=== PATIENT | female | born 1985 | race African-American/Black ===

== ENCOUNTER 2024-03-19 09:49 | Outpatient (REF) | payer MEDICAID, SELFPAY ==
[2024-03-19 11:54] LABS: MANUAL DIFF FLAG NO
[2024-03-19 12:05] LABS: Basophils Absolute Auto 0.1 X10*3/uL (0.0-0.2); Basophils Percent Auto 0.6 % (0-2); Eosinophils Absolute Auto 0.2 X10*3/uL (0.0-0.4); Hematocrit 39.3 % (37.0-47.0); Hemoglobin 12.8 g/dl (12.0-16.0); Imm Gran Abs Auto 0.03 X10*3/uL (0.00-0.03); Imm Gran Pct Auto 0.3 % (0.0-0.4); Lymphocytes Absolute Auto 2.8 X10*3/uL (1.2-4.9); Lymphocytes Percent Auto 31.1 % (20-40); Mean Corpuscular HGB Conc 32.6 g/dl (31.0-35.0); Mean Corpuscular Hemoglobin 26.9 pg (27.0-33.0); Mean Corpuscular Volume 82.6 fL (80.0-98.0); Mean Platelet Volume 9.7 fL (9.4-12.3); Monocytes Absolute Auto 0.6 X10*3/uL (0.1-1.2); Monocytes Percent Auto 6.5 % (2-11); Neutrophils Absolute Auto 5.3 x10*3/uL (2.0-8.3); Neutrophils Percent Auto 59.5 % (45-73); Platelet Count 344 X10*3/uL (160-400); Red Blood Count 4.76 X10*6/uL (4.20-5.50); Red Cell Distribution Width 13.3 % (11.0-16.0); White Blood Count 8.9 X10*3/uL (4.8-10.8)
[2024-03-19 12:14] LABS: Estimated Average Glucose 206 mg/dL; Hemoglobin A1c % 8.8 % (<6.0)
[2024-03-19 12:34] LABS: Alanine Aminotransferase 14 U/L (0-31); Albumin Level 4.2 g/dL (3.5-5.0); Alkaline Phosphatase 91 U/L (39-117); Anion Gap 11 (12-20); Aspartate Amino Transferase 16 U/L (5-31); Bilirubin Total 0.4 mg/dL (0.0-1.0); Blood Urea Nitrogen 6 mg/dL (9-16); Calcium 9.5 mg/dL (8.4-10.2); Carbon Dioxide 27 mmol/L (22-29); Chloride 103 mmol/L (96-108); Cholesterol 189 mg/dL (<200); Estimated Glomerular Filt Rate > 60; Glucose Random 165 mg/dL (60-115); HDL Cholesterol 53 mg/dL (>40); LDL Cholesterol Calculated 113 mg/dL (<100); Potassium 3.8 mmol/L (3.3-5.1); Sodium 137 mmol/L (135-145); Total Protein 7.9 g/dL (6.5-8.0); Triglycerides 118 mg/dL (<150)
== END 2024-03-19 09:50 | disposition home or self-care (01) ==
LOC: HO.HHCL 09:49
PROVIDERS: Visit Provider General Practice
DX: E11.9 Type 2 diabetes mellitus without complications (principal)
CPT/HCPCS: 36415; 80053; 80061; 83036; 84443; 85025

== ENCOUNTER 2024-10-04 17:48 | Emergency (ER) | payer MEDICAID, SELFPAY ==
--- NOTE | 2024-10-04 | ECG_ITS ---
Test Reason : PALPITATIONS Blood Pressure : */* mmHG Vent. Rate : 90 BPM Atrial Rate : 90 BPM P-R Int : 154 ms QRS Dur : 88 ms QT Int : 374 ms P-R-T Axes : 36 4 12 degrees QTcB Int : 457 ms Normal sinus rhythm Minimal voltage criteria for LVH, may be normal variant ( R in aVL ) Borderline ECG No previous ECGs available Referred By: Generic ED Physician Electronically Signed By: RADHA HUGGINS
--- NOTE | ~2024-10-04 | XR_ITS ---
CLINICAL HISTORY: CP 2 view chest x-ray. Comparison: None Findings: The lungs are adequately expanded. No focal consolidation. No effusion or pneumothorax. Cardiac and mediastinal contours are within normal limits. No acute osseous abnormality Impression: No acute process. This document has been electronically signed by: Darwin Sommer MD on 10/04/2024 19:22:59
--- NOTE | 2024-10-04 17:57 | PC.NURSE ---
reviewed EKG and okay'd for waiting room
[2024-10-04 18:12] VITALS: BP 142/87; PULSE 92; RESP 16; TEMP 36.6; O2SAT 100; BMI 33.4
--- NOTE | 2024-10-04 18:13 | ED.CHESTPAIN ---
HPI - Chest Pain General Chief Complaint: Chest Pain Stated Complaint: sudden onset palpitations, 12 lead unremarkable Time Seen by Provider: 10/04/24 22:00 Source: patient Mode of arrival: ambulatory Limitations: language barrier History of Present Illness ED Provider: HPI narrative: patient from [facility] patient no significant past medical history sharp left-sided chest pain under the breastlasted only for few minutes history of same pain in the past no shortness a breath no cough cardiac history in the past patient does have history of diabetes and hyperlipidemia Related Data Allergies Allergy/AdvReac Type Severity Reaction Status Date / Time No Known Allergies Allergy Verified 10/04/24 18:13 Review of Systems Review of Systems: Yes all other systems are reviewed and are negative [facility] Social History Social History Smoked in Last 30 Days: No Use of substances other than those prescribed or required for medical reasons: No Advance Directives: No Advance Directives Information Provided: Yes Physical Exam Vital Signs: Vital Signs: Last Vital Signs Temp 98.2 F 10/04/24 22:23 Pulse 89 10/04/24 22:23 Resp 20 10/04/24 22:23 BP 118/72 10/04/24 22:23 Pulse Ox 98 10/04/24 22:23 O2 Del Method Room Air 10/04/24 22:23 BMI result Body Mass Index 33.4 Appearance: Alert. Oriented X3. No acute distress. Eyes: PERRLA, No Nystagmus ENT: Pharynx normal. Oral Mucosa moist Neck: Normal inspection. Neck supple. CVS: Normal heart rate and rhythm. Pulses normal. Respiratory: No respiratory distress. Equal air entry bilateral, no wheezing/rales/rhonchi Abdomen: Soft and nontender. Bowel sounds are present, no mass palpable, no CVA tenderness Skin: Skin warm and dry. Normal skin color. Normal skin turgor. Extremities: No lower extremity edema. No calf tenderness Neuro: Oriented X 3. No motor deficit. No sensory deficit.No cerebellar signs , cranial nerves II-XII intact Course Course Course Narrative: This is an RME: Additional HPI, ROS, PE not included below will be deferred to primary provider. RME assessment and note performed by: Gricel Og PA-C This is a 89-[id number] creole speaking female, with a hx of diabetes on metformin, who presents to the ER with complaints of left sided chest cramping since today. pain started after eating. describing pain as a squeezing pain. Pt states that she has had this pain before. Reports pain in her chest resolved after ambulance. She was given 4 ASA en route. Plan: Labs, EKG, CXR Medical Decision Making Medical Decision Making [facility] Narrative: patient has atypical sharp left-sided chest pain lasted only for few seconds with normal EKG normal cardiac enzymes done twice, skeletal pain advised to take Tylenol/ibuprofen for pain as needed Differential Diagnosis Differential Diagnoses: The differential diagnosis associated with the presentation includes Lab Data [facility] Lab Attestation statement: I reviewed the patient's lab results. 10/04/24 18:43 10/04/24 18:43 Labs: Lab Results 10/04/24 10/04/24 Range/Units 18:43 21:02 WBC 10.9 H (4.8-10.8) X10*3/uL RBC 4.79 (4.20-5.50) X10*6/uL Hgb 12.9 (12.0-16.0) g/dl Hct 38.4 (37.0-47.0) % MCV 80.2 (80.0-98.0) fL MCH 26.9 L (27.0-33.0) pg MCHC 33.6 (31.0-35.0) g/dl RDW 13.5 (11.0-16.0) % Plt Count 340 (160-400) X10*3/uL MPV 9.1 L (9.4-12.3) fL Immature Gran % (Auto) 0.3 (0.0-0.4) % Neut % (Auto) 58.5 (45-73) % Lymph % (Auto) 33.3 (20-40) % Ceiba % (Auto) 6.6 (2-11) % Eos % (Auto) 0.9 (0-4) % Baso % (Auto) 0.4 (0-2) % Lymph # (Auto) 3.6 (1.2-4.9) X10*3/uL Ceiba # (Auto) 0.7 (0.1-1.2) X10*3/uL Eos # (Auto) 0.1 (0.0-0.4) X10*3/uL Baso # (Auto) 0.0 (0.0-0.2) X10*3/uL Abs Immat Gran (auto) 0.03 (0.00-0.03) X10*3/uL Absolute Neuts (auto) 6.4 (2.0-8.3) x10*3/uL Absolute Nucleated RBC 0.000 (0.0-0.012) X10*3/uL Nucleated RBC % (auto) 0.0 (0.0-0.2) /100WBC Sodium 139 (135-145) mmol/L Potassium 4.0 (3.3-5.1) mmol/L Chloride 104 (96-108) mmol/L Carbon Dioxide 27 (22-29) mmol/L Anion Gap 12 (12-20) BUN 9 (9-16) mg/dL Creatinine 0.69 (0.5-1.4) mg/dL Estim Creat Clear Calc 130.1 Estimated GFR > 60 Random Glucose 185 H (60-115) mg/dL Calcium 10.4 H D (8.4-10.2) mg/dL Magnesium 1.8 (1.6-2.6) mg/dL Total Bilirubin 0.3 (0.0-1.0) mg/dL Direct Bilirubin 0.1 (0.0-0.5) mg/dL AST 12 (5-31) U/L ALT 17 (0-31) U/L Alkaline Phosphatase 96 (39-117) U/L Troponin I High Sens < 2.7 < 2.7 (<3.5-17.0) ng/L Total Protein 8.2 H (6.5-8.0) g/dL Albumin 4.2 (3.5-5.0) g/dL Lipase 27 (8-78) U/L TSH 1.83 (0.32-4.0) uIU/mL Beta HCG, Quant < 2 mIU/mL Influenza Type A (PCR) NEGATIVE (Negative) Influenza Type B (PCR) NEGATIVE (Negative) RSV RNA Qual (PCR) NEGATIVE (Negative) SARS-CoV-2 RNA (RT-PCR) NEGATIVE (Negative) Independent Interpretation I performed an independent interpretation of an: EKG Interpretation: normal sinus rhythm heart rate 90 beats per minute normal intervals LVH no acute STT wave changes no acute ischemia Discharge Plan Discharge Clinical Impression: Atypical chest pain Patient Disposition: Home, Self-Care Additional Instructions: your chest pain is unlikely from the heart likely musculoskeletal your blood workup is normal follow up with your primary care doctor Tylenol/Motrin for the pain Interventions: ED Discharge Assessment Last Done: 10/04/24 22:23 Discharge Date/Time: 10/04/24 22:24 Print Language: Gibraltarian
[2024-10-04 18:49] LABS: MANUAL DIFF FLAG NO
[2024-10-04 18:50] LABS: Basophils Percent Auto 0.4 % (0-2); Eosinophils Absolute Auto 0.1 X10*3/uL (0.0-0.4); Eosinophils Percent Auto 0.9 % (0-4); Hematocrit 38.4 % (37.0-47.0); Hemoglobin 12.9 g/dl (12.0-16.0); Imm Gran Abs Auto 0.03 X10*3/uL (0.00-0.03); Imm Gran Pct Auto 0.3 % (0.0-0.4); Lymphocytes Absolute Auto 3.6 X10*3/uL (1.2-4.9); Lymphocytes Percent Auto 33.3 % (20-40); Mean Corpuscular HGB Conc 33.6 g/dl (31.0-35.0); Mean Corpuscular Hemoglobin 26.9 pg (27.0-33.0); Mean Corpuscular Volume 80.2 fL (80.0-98.0); Mean Platelet Volume 9.1 fL (9.4-12.3); Monocytes Absolute Auto 0.7 X10*3/uL (0.1-1.2); Monocytes Percent Auto 6.6 % (2-11); Neutrophils Absolute Auto 6.4 x10*3/uL (2.0-8.3); Neutrophils Percent Auto 58.5 % (45-73); Platelet Count 340 X10*3/uL (160-400); Red Blood Count 4.79 X10*6/uL (4.20-5.50); Red Cell Distribution Width 13.5 % (11.0-16.0); White Blood Count 10.9 X10*3/uL (4.8-10.8)
[2024-10-04 19:14] LABS: Alanine Aminotransferase 17 U/L (0-31); Albumin Level 4.2 g/dL (3.5-5.0); Alkaline Phosphatase 96 U/L (39-117); Anion Gap 12 (12-20); Aspartate Amino Transferase 12 U/L (5-31); Bilirubin Direct 0.1 mg/dL (0.0-0.5); Bilirubin Total 0.3 mg/dL (0.0-1.0); Blood Urea Nitrogen 9 mg/dL (9-16); Calcium 10.4 mg/dL (8.4-10.2); Carbon Dioxide 27 mmol/L (22-29); Chloride 104 mmol/L (96-108); Creatinine Clr Calc Pharmacy 130.1; Estimated Glomerular Filt Rate > 60; Glucose Random 185 mg/dL (60-115); Lipase 27 U/L (8-78); Magnesium 1.8 mg/dL (1.6-2.6); Sodium 139 mmol/L (135-145); Total Protein 8.2 g/dL (6.5-8.0)
[2024-10-04 19:19] LABS: Troponin-I High Sensitivity < 2.7 ng/L (<3.5-17.0)
[2024-10-04 19:29] LABS: HCG Quantitative < 2 mIU/mL; TSH reflex Free T4 1.83 uIU/mL (0.32-4.0)
[2024-10-04 19:30] LABS: Influenza A PCR NEGATIVE (Negative); Influenza B PCR NEGATIVE (Negative); Resp Syncy Virus RNA Qual PCR NEGATIVE (Negative); SARS COV2 PCR INHOUSE NEGATIVE (Negative)
[2024-10-04 20:54] VITALS: BP 114/76; PULSE 90; RESP 14; TEMP 36.8; O2SAT 97
--- OUTSIDE RECORDS SUMMARY | 2024-10-04 21:25 | XMS_ITS | Clinical Summary ---
Author Organization [employer] Address [address] [facility] [address] [place] [address] Care Team Providers Care Surgical Clinical Reviewer Name Role Phone Jeanette Burrell NP Primary Care Provider [phone] Allergies No known active allergies Medications Blood Pressure kitIndications:El evated blood pressure reading in office without diagnosis of hypertension 1 each 2 times daily. 1 kit 07/11/2024 07/11/20 25 Active metFORMIN XR (Glucophage-XR) 750 MG 24 hr tabletIndications :Type 2 diabetes mellitus without complication, without long-term current use of insulin (CMS/HCC) Take 1 tablet (750 mg) by mouth 2 times daily. Do not crush, chew, or split. 180 tablet 3 07/11/2024 07/11/20 25 Active simvastatin (Zocor) 20 MG tabletIndications :Type 2 diabetes mellitus without complication, without long-term current use of insulin (CMS/HCC) Take 1 tablet (20 mg) by mouth in the evening. 30 tablet 11 07/11/2024 07/11/20 25 Active Active Problems Problem Noted Date Diagnosed Date Type 2 diabetes mellitus wit hout complication, without long-term current use of insulin 03/19/2024 Assessment & Plan (03/19/2024 10:49 AM EDT): Reports diagnosis previously, taking Metformin 750mg BID Restarted medication Labs ordered to prepare for PCP visit Other hyperlipidemia 03/19/2024 Assessment & Plan (03/19/2024 10:48 AM EDT): Reports taking Simvastatin, unsure of dosage Elevated blood pressure read ing in office without diagnosis of hypertension 03/19/2024 Assessment & Plan (03/19/2024 10:50 AM EDT): Continue to monitor in clinic, would start ACEi/ARB if needed based on BP for renal protection Encounters Date Type Department Care Team Description 08/14/2024 Telephone [facility] [address] [place] [phone] Jeanette Burrell NP 07/12/2024 Telephone [facility] [address] [place] [phone] Cheryl Hernandez RN Follow-up 07/11/2024 9:20 AM EST Office Visit [facility] [address] [place] [phone] Jeanette Burrell NP Acute intractable headache, unspecified headache type (Primary Dx); Elevated blood pressure reading in office without diagnosis of hypertension; Type 2 diabetes mellitus without complication, without long-term current use of insulin ([facility]) from Last 3 Months Social History Tobacco Use Types Packs/Day Years Used Date Smoking Tobacco: Never Smokeless Tobacco: Never Tobacco Cessation:Counseling Given: Not Answered Comments Unknown Sex and Gender Information Value Date Recorded Sex Assigned at Female 03/19/2024 8:35 AM EDT Legal Sex Female 3:56 PM EDT Gender Identity Female 03/19/2024 8:35 AM EDT Sexual Orientation Straight 03/19/2024 8: 35 AM EDT Last Filed Vital Signs Vital Sign Reading Time Taken Comments Blood Pressure 118/80 07/11/2024 10:25 AM EST Pulse 90 07/11/2024 9:40 AM EST Temperature 36.7 ??C (98.1 ??F) 07/11/2024 9:40 AM ES T Respiratory Rate 16 07/11/2024 9:40 AM EST Oxygen Saturation 99% 03/19/2024 8:53 AM EDT Inhaled Oxygen Concentration - - Weight 99.3 kg (219 lb) 07/11/2024 9:40 AM EST Height - - Body Mass Index - - Plan of Treatment Upcoming Encounters Date Type Department Care Team (Late st Contact Info) Description 11/09/2024 10:00 AM EDT Office Visit [facility] [address] [place] [phone] Jeanette Burrell NP [address] [place] [phone] Health Maintenance Due Date Last Done Comments Depression Screening 1987 HIV Screening 1987 SDOH Screening 1987 Alcohol/Substance Use Screening 1999 Family Planning (PISQ) 12/26/2002 Hepatitis C Screening 12/26/2005 DTaP/Tdap/Td Vaccines (1 - Tdap) 12/26/2006 Hepatitis B Vaccines (1 of 3 - 19+ 3-dose series) 12/26/2006 Pap Smear 12/26/2008 Cervical Cancer Screening 12/26/2017 HPV/Cotest 12/26/2017 COVID-19 Vaccine (1 - 2023-2 5 season) 2024 Influenza Vaccine (#1) 2024 Tobacco Screening 03/19/2025 03/19/2024 Zoster Vaccines (1 of 2) 12/26/2037 RSV Patients and Pa tients Aged 60 years or older (1 - 1-dose 75+ series) 12/26/2062 HIB Vaccines Aged Out No longer eligi ble based on patient's age to complete this topic HPV Vaccines Aged Out No longer eligi ble based on patient's age to complete this topic Hepatitis A Vaccines Aged Out No long er eligible based on patient's age to complete this topic IPV Vaccines Aged Out No longer eligi ble based on patient's age to complete this topic Meningococcal Vaccine Aged Out No jamarcus jo eligible based on patient's age to complete this topic Pneumococcal Vaccine: Pediat rics (0 to 5 Years) and At-Risk Patients (6 to 49) Years) Aged Out No longer elig ible based on patient's age to complete this topic RSV under 20 months Aged Out No longe r eligible based on patient's age to complete this topic Rotavirus Vaccines Aged Out No longer eligible based on patient's age to complete this topic Insurance [facility] Care Teams Surgical Clinical Reviewer Relationship Specialty Start Date End Date Jeanette Burrell NP [address] [place] [phone] PCP - General Family Medicine 07/11/24
[2024-10-04 21:27] LABS: Troponin-I High Sensitivity < 2.7 ng/L (<3.5-17.0)
[2024-10-04 21:59] VITALS: BP 118/72; PULSE 89; RESP 20; TEMP 36.8; O2SAT 98
[2024-10-04 22:23] VITALS: BP 118/72; PULSE 89; RESP 20; TEMP 36.8; O2SAT 98
== END 2024-10-04 22:24 | disposition home or self-care (01) ==
PROVIDERS: Physician Assistant Medical; Emergency Provider Internal Medicine
DX: R07.89 Other chest pain (principal); R00.2 Palpitations; Z03.818 Encounter for observation for suspected exposure to other biological agents ruled out; Z79.899 Other long term (current) drug therapy
CPT/HCPCS: 0241U; 36415; 71046; 80048; 80076; 83690; 83735; 84443; 84484; 84702; 85025; 93005; 99283; 99284

== ENCOUNTER → 2024-10-04 17:52 | Outpatient (BNV) | payer MEDICAID, SELFPAY | PROVIDERS: Emergency Provider Internal Medicine; Visit Provider Internal Medicine | DX: R00.2 Palpitations (principal) | CPT/HCPCS: 93010 ==

== ENCOUNTER → 2024-10-04 18:15 | Outpatient (BNV) | payer MEDICAID, SELFPAY | PROVIDERS: Visit Provider Radiology Vascular & Interventional Radiology | DX: R07.9 Chest pain, unspecified (principal) | CPT/HCPCS: 71046 ==

== ENCOUNTER 2024-11-17 14:17 | Outpatient (REF) | payer MEDICAID, SELFPAY ==
--- OUTSIDE RECORDS SUMMARY | 2024-11-17 14:19 | XMS_ITS | Clinical Summary ---
Author Organization [employer] Address [address] [facility] 7[address] [place] [address] Care Team Providers Care Terminal Computer Operator Name Role Phone Jeanette Burrell NP Primary Care Provider [phone] Allergies No known active allergies Medications Blood Pressure kitIndications:El evated blood pressure reading in office without diagnosis of hypertension 1 each 2 times daily. 1 kit 4 07/11/20 25 Active metFORMIN XR (Glucophage-XR) 750 MG 24 hr tabletIndications :Type 2 diabetes mellitus without complication, without long-term current use of insulin (CMS/HCC) Take 1 tablet (750 mg) by mouth 2 times daily. Do not crush, chew, or split. 180 tablet 3 4 07/11/20 25 Active simvastatin (Zocor) 20 MG tabletIndications :Type 2 diabetes mellitus without complication, without long-term current use of insulin (CMS/HCC) Take 1 tablet (20 mg) by mouth in the evening. 30 tablet 11 4 07/11/20 25 Active Blood Pressure Monitoring (Omron 3 Series BP Monitor) device USE TO CHECK BLOOD PRESSURE TWICE DAILY DIRECTED 4 Active Active Problems Problem Noted Date Diagnosed [...] Encounters Date Type Department Care Team Description 11/16/2024 3:30 PM EDT Office Visit [facility] [address] [place] [phone] Jeanette Burrell NP Vaginal itching (Primary Dx); Type 2 diabetes mellitus without complication, without long-term current use of insulin ([facility]) 11/16/2024 Travel 11/15/2024 Telephone [facility] [address] [place] [address] Mason Ledbetter MA chartprep 11/06/2024 Patient Outreach [facility] [address] [place] [address] Jeanette Burrell NP Pre-visit Planning ([facility] unable to reach [facility]) 10/30/2024 Telephone [facility] [address] [place] [address] Mason Ledbetter MA chartprep 10/24/2024 Telephone [facility] [address] [place] [address] Mason Ledbetter MA appointment rescheduled 10/05/2024 Population Health Risk Score Community [facility] () Department [address] [place] [phone] Provider, Population Health Generic from Last 3 Months Social History Tobacco [...] Sign Reading Time Taken Comments Blood Pressure 130/84 11/16/2024 4:00 PM EDT Pulse 98 11/16/2024 4:00 PM EDT Temperature 36.7 ??C (98.1 ??F) 11/16/2024 4:00 PM ED T Respiratory Rate 24 11/16/2024 4:00 PM EDT Oxygen Saturation 100% 11/16/2024 4:00 PM EDT Inhaled Oxygen Concentration - - Weight 93.7 kg (206 lb 9.6 oz) 11/16/2024 4:00 P M EDT Height - - Body Mass Index - - Plan of Treatment Health Maintenance Due Date Last Done Comments Depression Screening 1987 HIV Screening 1987 SDOH Screening 1987 Diabetes: Foot Exam 12/26/1997 Eye Exam 12/26/1997 Alcohol/Substance Use Screening 1999 Family Planning (PISQ) 12/26/2002 Hepatitis C Screening 12/26/2005 DTaP/Tdap/Td Vaccines (1 - Tdap) 12/26/2006 Diabetes: Urine Protein Screening 12/26/2006 Hepatitis B Vaccines (1 of 3 - 19+ 3-dose series) 12/26/2006 Pneumococcal Vaccine: Pediatrics (0 to 5 Years) and At-Risk Patients (6 to 49) Years) (1 of 2 - PCV) 12/26/2006 Pap Smear 12/26/2008 Cervical Cancer Screening 12/26/2017 HPV/Cotest 12/26/2017 COVID-19 Vaccine ( - 2023-2 5 season) 2024 Influenza Vaccine (#1) 2024 Diabetes: Hemoglobin A1C 02/15/2025 025, 03/19/2024 Lipid Panel 03/19/2025 03/19/2024 Tobacco Screening 11/16/2025 11/16/2024 Zoster Vaccines (1 of 2) 12/26/2037 RSV Patients and Patients Aged 60 years or older (1 - [...] on patient's age to complete this topic Procedures Procedure Name Priority Date/Time Associated Diagnosis Comments POCT GLYCATED HEMOGLOBIN, TOTAL Routine 11/16/2024 4:02 PM EDT Type 2 diabetes mellitus without complication, without long-term current use of insulin ([facility]) POCT GLUCOSE Routine 11/16/2024 4:02 PM EDT Type 2 diabetes mellitus without complication, without long-term current use of insulin ([facility]) LIPID PANEL, STANDARD Routine 03/19/2024 9:54 AM EDT Type 2 diabetes mellitus without complication, without long-term current use of insulin ([facility]) from Last 3 Months or Most Recently Relevant to Health Maintenance Results * (ABNORMAL) POCT HGB A1C (11/16/2024 4:02 PM EDT) Hemoglobin A1C 7.6(A) 4.0 - 6.0 % QC Media Lot # [id number] Lot# Expiration Date 120,526 Blood 11/16/2024 4:02 PM EDT us Jeanette Burrell NP POINT OF CARE TEST ENTER/EDIT O RDERABLES Final Result * POCT Glucose (11/16/2024 4:02 PM EDT) Glucose Blood, POC 155 60 - 200 mg/dL QC Media Lot # [id number] Lot# Expiration Date 82,625 Blood Capillary blood specimen / Unknown 11/16/2024 4:02 PM EDT us Jeanette Toth BROCK POINT OF CARE TEST ENTER/EDIT O RDERABLES Final Result * (ABNORMAL) Lipid Panel, Standard (03/19/2024 9:54 AM EDT) Triglycerides 118 <150 mg/dL [facility] Comment:Desirable Triglyceri de: less than 150 mg/dLBorderline High Triglyceride 150-199 mg/dLHigh Triglyceride: 200-499 mg/dLVery High Triglyceride: greater than or equal to 5OO mg/dL Cholesterol 189 <200 mg/dL [facility] Comment:Desirable Cholestero l: less than 200 mg/dLBorderline High Cholesterol: 200-239 mg/dLHigh Cholesterol: greater than 239 mg/dL LDL Cholesterol Calculated 113(H) <100 mg/dL [facility] Comment:Desirable LDL: less than 100 mg/dLNear Optimal/Above Optimal LDL: 110- 129 mg/dLBorderline High LDL: 130-159 mg/dLHigh LDL: 160-189 mg/dLVery High LDL: greater than or equal to 190 mg/dL HDL Cholesterol 53 >40 mg/dL [facility] Comment:Desirable HDL: great er than 40 mg/dL Note: This HDL assay may give artificially low results in patients with liver disease. Blood Venous blood specimen / Unknown 03/19/2024 9:54 AM EDT 03/19/2024 11:49 AM EDT us Reina Silverman MD LAB BLOOD ORDERABLES Final Res ult [facility] [address] [place] [phone] from Last 3 Months or Most Recently Relevant to Health Maintenance [place] [address] C3 Care Teams Terminal Computer Operator Relationship Specialty Start Date End Date Jeanette Burrell NP [address] [place] [phone] PCP - General Family Medicine 07/11/24
--- OUTSIDE RECORDS SUMMARY | 2024-11-17 14:19 | XMS_ITS | Encounter Summary ---
Author Organization [employer] Address [address] [facility] [address] [place] [address] Care Team Providers Care Contracts Intern Name Role Phone Jeanette Burrell NP Primary Care Provider [phone] Reason for Visit * Reason Comments Follow-up Elevated BP and head aches Encounter Details Date Type Department Care Team (Late st Contact Info) Description 11/16/2024 3:30 PM EDT Office Visit [facility] [address] [place] [address] Jeanette Burrell NP [address] [place] [address] Vaginal itching (Primary Dx); Type 2 diabetes mellitus without complication, without long-term current use of insulin ([facility]) Social History Tobacco Use Types Packs/Day Years Used Date Smoking Tobacco: Never Smokeless Tobacco: Never Comments Unknown Sex and Gender Information Value Date Recorded Sex Assigned at Female 03/19/2024 8:35 AM EDT Legal Sex Female 3:56 PM EDT Gender Identity Female 03/19/2024 8:35 AM EDT Sexual Orientation Straight 03/19/2024 8: 35 AM EDT documented as of this encounter Last Filed Vital Signs Vital Sign Reading [...] - - Body Mass Index - - documented in this encounter Plan of Treatment Scheduled Orders Name Type Priority Associated Diagnoses Orde r Schedule Bacterial Vaginosis, Yeast and Trich Microbiology Routine Vaginal itching Expected: 11/16/2024 (Approximate), Expires: 11/16/2025 documented as of this encounter Procedures Procedure Name Priority Date/Time Associated Diagnosis Comments POCT GLYCATED HEMOGLOBIN, TOTAL Routine 11/16/2024 4:02 PM EDT Type 2 diabetes mellitus without complication, without long-term current use of insulin ([facility]) POCT GLUCOSE Routine 11/16/2024 4:02 PM EDT Type 2 diabetes mellitus without complication, without long-term current use of insulin ([facility]) documented in this encounter Results * (ABNORMAL) POCT HGB A1C (11/16/2024 [...] Unknown 11/16/2024 4:02 PM EDT us Jeanette Burrell NP POINT OF CARE TEST ENTER/EDIT O RDERABLES Final Result documented in this encounter Visit Diagnoses Diagnosis Vaginal itching- Primary Pruritus of genital organs Type 2 diabetes mellitus without complication, without long-term current use of insulin ([facility]) documented in this encounter Care Teams Contracts Intern Relationship Specialty Start Date End Date Jeanette Burrell NP [address] [place] [phone] PCP - General Family Medicine 07/11/24 documented as of this encounter
--- OUTSIDE RECORDS SUMMARY | 2024-11-17 14:19 | XMS_ITS | Encounter Summary ---
Author Organization [email or web address] Address [address] [facility] [address] [place] [address] Care Team Providers Care Senior Trial Attorney Name Role Phone Jeanette Burrell NP Primary Care Provider [phone] Reason for Visit * Reason Onset Date Comments chartprep 11/15/2024 Encounter Details Date Type Department Care Team (Late st Contact Info) Description 11/15/2024 Telephone [facility] [address] [place], [place] [phone] Mason Ledbetter MA chartprep Social History Tobacco Use Types Packs/Day Years Used Date Smoking Tobacco: Never Smokeless Tobacco: Never Comments Unknown Sex and Gender Information Value Date Recorded Sex Assigned at Female 03/19/2024 8:35 AM EDT Legal Sex Female 3:56 PM EDT Gender Identity Female 03/19/2024 8:35 AM EDT Sexual Orientation Straight 03/19/2024 8: 35 AM EDT documented as of this encounter Miscellaneous Notes * Telephone Encounter - Mason Ledbetter MA - 11/15/2024 1:39 PM EDT Chart Prep Labs: done Images: not applicable Referrals: not applicable Vaccines due: yes covid,flu,Tdap,hep B, pneumo Screenings: pap smear and eye exam Overdue care gaps: A1c, Glucose, SBIRT, SDOH, PHQ-9, KAYKAY-7, Oral health screening, and Disability screen documented in this encounter Plan of Treatment Not on file documented as of this encounter Visit Diagnoses Not on filedocumented in this encounter Care Teams Senior Trial Attorney Relationship Specialty Start Date End Date Jaenette Burrell NP [address] [place] [address] PCP - General Family Medicine 07/11/24 documented as of this encounter
--- OUTSIDE RECORDS SUMMARY | 2024-11-17 14:19 | XMS_ITS | Encounter Summary ---
Author Organization [employer] Address [address] [facility] [address] [place] [address] Care Team Providers Care Studio Camera Operator Name Role Phone Jeanette Burrell NP Primary Care Provider Encounter Details Date Type Department Care Team (Latest Contact Info) Description 11/16/2024 Travel Social History Tobacco Use Types Packs/Day Years Used Date Smoking Tobacco: Never Smokeless Tobacco: Never Comments Unknown Sex and Gender Information Value Date Recorded Sex Assigned at Female 03/19/2024 8:35 AM EDT Legal Sex Female 3:56 PM EDT Gender Identity Female 03/19/2024 8:35 AM EDT Sexual Orientation Straight 03/19/2024 8: 35 AM EDT documented as of this encounter Plan of Treatment Not on file documented as of this encounter Visit Diagnoses Not on filedocumented in this encounter Care Teams Studio Camera Operator Relationship Specialty Start Date End Date Jeanette Burrell NP [address] [place] [phone] PCP - General Family Medicine 07/11/24 documented as of this encounter
== END 2024-11-17 14:18 | disposition home or self-care (01) ==
LOC: HO.LNP 14:17
PROVIDERS: Visit Provider Nurse Practitioner
DX: Z13.89 Encounter for screening for other disorder (principal)

== ENCOUNTER 2024-11-20 16:21 | Outpatient (REF) | payer MEDICAID, SELFPAY ==
[2024-11-20 17:46] LABS: Bacterial Vaginosis PCR POSITIVE (Negative); Candida Group PCR NOT DETECTED (Not Detect); Candida glab krusei PCR NOT DETECTED (Not Detect); Trichomonas vaginalis PCR NOT DETECTED (Not Detect)
--- OUTSIDE RECORDS SUMMARY | 2024-11-20 18:28 | XMS_ITS | Encounter Summary ---
Author Organization [employer] Address [address] [facility] 7t [place] [address] Care Team Providers Care Car Supervisor Name Role Phone Jeanette Burrell NP Primary Care Provider [phone] Reason for Visit * Reason Onset Date Comments chartprep 11/15/2024 Encounter Details Date Type Department Care Team (Late st Contact Info) Description 11/15/2024 Telephone [facility] MED[facility] [address] [place], [place] [phone] Mason Ledbetter MA chartprep Social History Tobacco [...] on filedocumented in this encounter Care Teams Car Supervisor Relationship Specialty Start Date End Date Jeanette Burrell NP [address] [place] [address] PCP - General Family Medicine 07/11/24 documented as of this encounter
--- OUTSIDE RECORDS SUMMARY | 2024-11-20 18:28 | XMS_ITS | Encounter Summary ---
Author Organization [facility] [employer] Address [address] [facility] 7t [place] [address] Care Team Providers Care Parcel Post Officer Name Role Phone Jeanette Burrell NP Primary Care Provider [phone] Reason for Visit * Reason Onset Date Comments unlabeled specimen 11/19/2024 Encounter Details Date Type Department Care Team (Late st Contact Info) Description 11/19/2024 Telephone [facility] MEDICINE [address] [place], [place] [phone] Jeanette Burrell NP [address] [place] [address] unlabeled specimen Social History Tobacco Use Types Packs/Day Years [...] encounter Miscellaneous Notes * Telephone Encounter - Jeanette Burrell NP - 11/19/2024 9:55 AM EDT Ambrose, please call this patient and ask that she come to the clinic or go the lab for repeat vag swab due to labeling error. I will re-place the order. Thank you * Telephone Encounter - Binta Meza MA - 11/19/2024 9:46 AM EDT Incoming call from [facility] lab to notify that due to unlabeled specimen the BV was not perform. Please notify [place] if needs a re-collection. documented in this encounter Plan of Treatment Not on file documented as of this encounter Visit Diagnoses Not on filedocumented in this encounter Care Teams Parcel Post Officer Relationship Specialty Start Date End Date Jeanette Burrell NP [address] [place] [address] PCP - General Family Medicine 07/11/24 documented as of this encounter
--- OUTSIDE RECORDS SUMMARY | 2024-11-20 18:28 | XMS_ITS | Encounter Summary ---
Author Organization [employer] Address [address] [facility] 7t [place] [address] Care Team Providers Care International Relations Teacher Name Role Phone Jeanette Burrell NP Primary Care Provider [phone] Reason for Visit * Reason Comments Follow-up Elevated BP and head aches Encounter Details Date Type Department Care Team (Late st Contact Info) Description 11/16/2024 3:30 PM EDT Office Visit [facility] MEDICINE [address] [place] [address] Jeanette Burrell NP [address] [place] [address] Vaginal itching (Primary Dx); Type 2 diabetes mellitus without complication, without long-term current use of insulin ([facility]) Social History Tobacco Use Types Packs/Day Years [...] on file documented as of this encounter Procedures Procedure Name Priority Date/Time Associated Diagnosis Comments POCT GLYCATED HEMOGLOBIN, TOTAL Routine 11/16/2024 4:02 PM EDT Type 2 diabetes mellitus without complication, without long-term current use of insulin ([facility]) POCT GLUCOSE Routine 11/16/2024 4:02 PM EDT Type 2 diabetes mellitus without complication, without long-term current use of insulin ([facility]) documented in this encounter Results * (ABNORMAL) [...] specimen / Unknown 11/16/2024 4:02 PM EDT Result Amy Burrell NP POINT OF CARE TEST ENTER/EDIT O RDERABLES Final Result documented in this encounter Visit Diagnoses Diagnosis Vaginal itching- Primary Pruritus of genital organs Type 2 diabetes mellitus without complication, without long-term current use of insulin ([facility]) documented in this encounter Care Teams International Relations Teacher Relationship Specialty Start Date End Date Jeanette Burrell NP [address] [place] [phone] PCP - General Family Medicine 07/11/24 documented as of this encounter
--- OUTSIDE RECORDS SUMMARY | 2024-11-20 18:28 | XMS_ITS | Encounter Summary ---
Author Organization [employer] Address [address] [facility] 7t [place] [address] Care Team Providers Care Morgue Librarian Name Role Phone Jeanette Burrell NP Primary Care Provider [phone] Encounter Details Date Type Department Care Team [...] on filedocumented in this encounter Care Teams Morgue Librarian Relationship Specialty Start Date End Date Jeanette Burrell NP [address] [place] [phone] PCP - General Family Medicine 07/11/24 documented as of this encounter
--- OUTSIDE RECORDS SUMMARY | 2024-11-20 18:28 | XMS_ITS | Encounter Summary ---
Author Organization [employer] Address 75 [facility] 7t [place] [address] Care Team Providers Care Fitness Consultant Name Role Phone Jeanette Burrell NP Primary Care Provider [phone] Reason for Visit * Reason Onset Date Comments Lab Orders 11/19/2024 Repeat swabs Encounter Details Date Type Department Care Team (Late st Contact Info) Description 11/19/2024 Telephone [facility] MEDICINE [address] [place], [place] [phone] Mason Ledbetter [place] Lab Orders (Repeat swabs) Social History Tobacco Use Types Packs/Day Years [...] Telephone Encounter - Mason Ledbetter MA - 11/19/2024 10:43 AM EDT T/C placed medical records clerk spoke with pt, pt agreed to come in tomorrow at 9:00 am to repeat swabtest. documented in this encounter Plan of Treatment Not on file documented as of this encounter Visit Diagnoses Not on filedocumented in this encounter Care Teams Fitness Consultant Relationship Specialty Start Date End Date Jeanette Burrell NP [address] [place] [address] PCP - General Family Medicine 07/11/24 documented as of this encounter
--- OUTSIDE RECORDS SUMMARY | 2024-11-20 18:28 | XMS_ITS | Encounter Summary ---
Author Organization [employer] Address 75 [facility] 7t [place] [address] Care Team Providers Care Necktie Stitcher Name Role Phone Jeanette Burrell NP Primary Care Provider [phone] Encounter Details Date Type Department Care Team (Late st Contact Info) Description 11/19/2024 Orders Only [facility] MEDICINE [address] [place] [address] Jeanette Burrell NP [address] [place] [address] Vaginal itching (Primary Dx) Social History Tobacco Use Types Packs/Day Years Used Date Smoking Tobacco: Never Smokeless Tobacco: Never Comments Unknown Sex and Gender Information Value Date Recorded Sex Assigned at Female 03/19/2024 8:35 AM EDT Legal Sex Female 3:56 PM EDT Gender Identity Female 03/19/2024 8:35 AM EDT Sexual Orientation Straight 03/19/2024 8: 35 AM EDT documented as of this encounter Plan of Treatment Scheduled Orders Name Type Priority Associated Diagnoses Orde r Schedule Bacterial Vaginosis, Yeast and Trich Microbiology Routine Vaginal itching Expected: 11/19/2024 (Approximate), Expires: 11/19/2025 documented as of this encounter Procedures Procedure Name Priority Date/Time Associated Diagnosis Comments BACTERIAL VAGINOSIS PANEL Routine 11/20/2024 12:00 AM EDT Vaginal itching documented in this encounter Results * (ABNORMAL) Bacterial Vaginosis (11/20/2024 12:00 AM EDT) TRICHOMONAS VAGINALIS DETECTION BY PCR NOT DETECTED Not Detect [facility] BACTERIAL VAGINOSIS DETECTION BY PCR POSITIVE(A) Negative [facility] Comment:The BV organism targ ets of the Xpert Xpress MVP test can becommensal in women; Xpert Xpress MVP positive results forbacterial vaginosis should be considered in conjunction withother clinical and patient information to determine thedisease status. Organisms that are not detected by the XpertXpress MVP test have also been reported to be associatedwith BV and aerobic vaginitis.The Xpert Xpress MVP test performance has not been evaluatedin patients under the age of 14. LARISSA GROUP DETECTION BY PCR NOT DETECTED Not Detect [facility] Larissa glab krusei PCR NOT DETECTED Not Detect [facility] 11/20/2024 11/20/2024 Jeanette Burrell NP LAB MICROBIOLOGY - GENERAL EDSON BENAVIDES Final Result [facility] [address] [place] [address] [phone] documented in this encounter Visit Diagnoses Diagnosis Vaginal itching- Primary Pruritus of genital organs documented in this encounter Care Teams Necktie Stitcher Relationship Specialty Start Date End Date Jeanette Burrell NP [address] [place] [phone] PCP - General Family Medicine 07/11/24 documented as of this encounter
--- OUTSIDE RECORDS SUMMARY | 2024-11-20 18:28 | XMS_ITS | Clinical Summary ---
Author Organization [email or web address] Address [address] [facility] 7t [place] [address] Care Team Providers Care Pilot Submersible Name Role Phone Jeanette Burrell NP Primary Care Provider [phone] Allergies No known active allergies Medications Blood [...] Encounters Date Type Department Care Team Description 11/19/[address] [address] Mason Ledbetter [place] Lab Orders (Repeat swabs) 11/19/2024 Orders Only [address] [address] Jeanette Burrell NP Vaginal itching (Primary Dx) 11/19/[address] [address] Jeanette Burrell NP unlabeled specimen 11/16/2024 3:30 PM EDT Office Visit [address] [address] Jeanette Burrell NP Vaginal itching (Primary Dx); Type 2 diabetes mellitus without complication, without long-term current use of insulin ([facility]) 11/16/2024 Travel 11/15/[address] [address] Mason Ledbetter MA chartprep 11/06/2024 Patient Outreach [facility] [address] [place] [address] Jeanette Burrell NP Pre-visit Planning (SDOH unable to reach M) 10/30/[address] [address] Mason Ledbetter [place] chartprep 10/24/[address] [address] Mason Ledbetter [place] appointment rescheduled 10/05/2024 Population Health Risk Score [facility] Department [address] [place] [phone] Provider, Population Health Generic from Last 3 [...] Routine 11/20/2024 12:00 AM EDT Vaginal itching POCT GLYCATED HEMOGLOBIN, TOTAL Routine 11/16/2024 4:02 PM EDT Type 2 diabetes mellitus without complication, without long-term current use of insulin ([facility]) POCT GLUCOSE Routine 11/16/2024 4:02 PM EDT Type 2 diabetes mellitus without complication, without long-term current use of insulin ([facility]) LIPID PANEL, STANDARD Routine 03/19/2024 9:54 AM EDT Type 2 diabetes mellitus without complication, without long-term current use of insulin ([facility]) from Last 3 Months or Most Recently Relevant to Health Maintenance Results * (ABNORMAL) Bacterial Vaginosis (11/20/2024 12:00 AM EDT) TRICHOMONAS VAGINALIS DETECTION BY PCR NOT DETECTED Not Detect [facility] BACTERIAL VAGINOSIS DETECTION BY PCR POSITIVE(A) Negative [facility] Comment:The BV organism targ ets [...] DETECTION BY PCR NOT DETECTED Not Detect [facility] Larissa glab krusei PCR NOT DETECTED Not Detect [facility] 11/20/2024 11/20/2024 [facility] LAB MICROBIOLOGY - GENERAL ORDBuzz BENAVIDES Final Result [facility] [address] [place] [address] [phone] * (ABNORMAL) POCT HGB A1C (11/16/2024 4:02 PM EDT) Pathologist [facility] Hemoglobin A1C 7.6(A) 4.0 - 6.0 % QC Media Lot # [id number] Lot# Expiration Date [id number] Blood 11/16/2024 4:02 PM EDT [facility] POINT OF CARE TEST ENTER/EDIT O RDERABLES Final Result * POCT Glucose (11/16/2024 4:02 PM EDT) Pathologist [facility] Glucose Blood, POC 155 60 - 200 mg/dL QC Media Lot # [id number] Lot# Expiration Date 82,625 Blood Capillary blood specimen / Unknown 11/16/2024 4:02 PM EDT [facility] POINT OF CARE TEST ENTER/EDIT O RDERABLES Final Result * (ABNORMAL) Lipid Panel, Standard (03/19/2024 9:54 AM EDT) Triglycerides 118 <150 mg/dL [facility] Comment:Desirable Triglyceri de: less than 150 mg/dLBorderline High Triglyceride 150-199 mg/dLHigh Triglyceride: 200-499 mg/dLVery High Triglyceride: greater than or equal to 5OO mg/dL Cholesterol 189 <200 mg/dL [facility] Comment:Desirable Cholestero l: less than 200 mg/dLBorderline High Cholesterol: 200-239 mg/dLHigh Cholesterol: greater than 239 mg/dL LDL Cholesterol Calculated 113(H) <100 mg/dL [facility] Comment:Desirable LDL: less than 100 mg/dLNear Optimal/Above Optimal LDL: 110- 129 mg/dLBorderline High LDL: 130-159 mg/dLHigh LDL: 160-189 mg/dLVery High LDL: greater than or equal to 190 mg/dL HDL Cholesterol 53 >40 mg/dL [facility] Comment:Desirable HDL: great er than 40 mg/dL Note: This HDL assay may give artificially low results in patients with liver disease. Blood Venous blood specimen / Unknown 03/19/2024 9:54 AM EDT 03/19/2024 11:49 AM EDT us Reina Silverman MD LAB BLOOD ORDERABLES Final Res ult [facility] [address] [place] [phone] from Last 3 Months or Most Recently Relevant to Health Maintenance Insurance [facility] C3 Care Teams Pilot Submersible Relationship Specialty Start Date End Date Jeanette Burrell NP [address] [place] [phone] PCP - General Family Medicine 07/11/24
== END 2024-11-20 16:22 | disposition home or self-care (01) ==
LOC: HO.HHCLNP 16:21
PROVIDERS: Visit Provider Nurse Practitioner
DX: N89.8 Other specified noninflammatory disorders of vagina (principal)
CPT/HCPCS: 81515

== ENCOUNTER 2025-05-27 14:03 | Outpatient (REF) | payer MEDICAID, SELFPAY ==
--- NOTE | ~2025-05-27 | XR_ITS ---
EXAMINATION: XR THORACIC SPINE CLINICAL INFORMATION: mid back pain COMPARISON: None available. TECHNIQUE: 3 views of the thoracic spine were obtained. FINDINGS: There is no fracture or bone destruction seen and the vertebral alignment is normal. There is mild disc space narrowing in the upper thoracic spine, approximately T3-4. There is no abnormality of the paraspinal soft tissues. XR/XR thoracic spine 2V IMPRESSION: Mild disc space narrowing at T3-4. Electronically signed by: Angelo Olson MD 05/27/2025 02:27 PM [facility]
--- NOTE | ~2025-05-27 | XR_ITS ---
EXAMINATION: XR CHEST CLINICAL INFORMATION: mid back pain COMPARISON: 10/04/2024 TECHNIQUE: 2 views of the chest were obtained. FINDINGS: The cardiac, hilar, and mediastinal contours are normal. The lungs are clear bilaterally. There is no pneumothorax or pleural effusion. There is no focal osseous or soft tissue abnormality. XR/XR chest 2V IMPRESSION: Normal chest. Electronically signed by: Daniel Patel MD 05/27/2025 02:26 PM [facility]
== END 2025-05-27 14:04 | disposition home or self-care (01) ==
LOC: HO.HHCX 14:03
PROVIDERS: Visit Provider Internal Medicine
DX: M54.6 Pain in thoracic spine (principal); S39.012A Strain of muscle, fascia and tendon of lower back, initial encounter
CPT/HCPCS: 71046; 72070

== ENCOUNTER → 2025-05-27 14:03 | Outpatient (BNV) | payer MEDICAID, SELFPAY | PROVIDERS: Visit Provider Radiology Diagnostic Radiology | DX: M54.50 Low back pain, unspecified (principal); M48.04 Spinal stenosis, thoracic region | CPT/HCPCS: 71046; 72070 ==

== ENCOUNTER 2025-06-05 10:28 | Outpatient (REF) | payer MEDICAID, SELFPAY ==
--- OUTSIDE RECORDS SUMMARY | 2025-06-04 11:00 | XMS_ITS | Encounter Summary ---
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 0 06/05/2025 How many drinks containing a lcohol do you have on a typical day when you are drinking? 0 06/05/2025 How often do you have six or more drinks on one occasion? 0 06/05/2025 Depression Answer Date Recorded Patient Health Questionnaire-9 Score 0 06/05/2025 Patient Health Questionnaire-9 Score 0 06/05/2025 Last PHQ-9: Questionnaire Data Not on file 1 08/05/2024 Housing Stability Answer Date Recorded What is your housing situation today? I have darvin lima 05/29/[address] you li ve. Do you have problems with any of the following? None of the above 05/29/2025 Food Insecurity Answer Date Recorded Within the past 12 months, y ou worried that your food would run out before you got money to buy more: Sometimes True 2024 Within the past 12 months,th e food you bought just didn't last and you didn't have enough money to get more: Sometimes True 05/29/2025 Transportation Answer Date Recorded In the past 12 months, has l ack of transportation kept you from medical appts, meetings, work or from getting things needed for daily living? No 05/29/2025 Utilities Answer Date Recorded In the past 12 months, has t he electric, gas, oil or water company threatened to shut off services in your home? No 05/29/2025 Depression Answer Date Recorded Patient Health Questionnaire-2 Score 0 06/05/2025 Internet Access Answer Date Recorded Internet Access Q1 Yes 05/29/2025 Internet Access Q2 Not on file 05/29/2025 Comments Unknown Sex and Gender Information Value Date Recorded Sex Assigned at Female 03/19/2024 8:35 AM EDT Legal Sex Female 3:56 PM EDT Gender Identity Female 03/19/2024 8:35 AM EDT Sexual Orientation Straight 03/19/2024 8: 35 AM EDT documented as of this encounter Progress Notes * Shona Munoz, MARYSE - 06/04/2025 11:00 AM EST Eye Care Progress Note Patient ID: Alyce Saleem is a 39 y.o. female. HPI Patient presents for diabetic eye exam. Patient was diagnosed with T2DM 2 years ago. Patient's pcvnC1h was 7.6% on 11/16/24. Patient's last BSL was 95mg/dl this AM Patient reports blurry vision both eyes (OU). Patient reports longstanding floaters both eyes (OU).Denies flashes. UDAY: 1 year ago Last edited by Shona Munoz, MARYSE on 06/04/2025 3:48 PM. Current Medications[1] Medical History[2] Surgical History[3] Family History[4] Tobacco Use: Low Risk (06/04/2025) Tobacco Smoking Tobacco Use: Never Smokeless Tobacco Use: Never Passive Exposure: Never Allergies[5] ROS Positive for: Endocrine, Eyes Negative for: Constitutional, Gastrointestinal, Neurological, Skin, Genitourinary, Musculoskeletal,HENT, Cardiovascular, Respiratory, Psychiatric, Allergic/Imm, Heme/Lymph Last edited by Shona Munoz, OD on 06/04/2025 3:48 PM. Base Eye Exam Visual Acuity (Snellen - Linear) Right Left Both Dist sc 20/20 20/20-2 Near sc 20/20 Tonometry ([facility] , 11:38 AM) Right Left Pressure 22 22 Pupils Pupils APD Right PERRL None Left PERRL None Visual Hopper (Counting fingers) Left Right Full Full Extraocular Movement Right Left Full Full Neuro/Psych Oriented x3: Yes Dilation Both eyes: 1.0% tropicamide @ 11:13 AM Slit Lamp and Fundus Exam External Exam Right Left External Normal Normal Slit Lamp Exam Right Left Lids/Lashes Clean and clear Clean and clear Conjunctiva/Sclera White and quiet White and quiet Cornea Clear Clear Anterior Chamber Deep and quiet, angles open Deep and quiet, angles open Iris Round and reactive, (-) NVI Round and reactive, (-) NVI Lens Clear Clear Fundus Exam Right Left Vitreous Clear Clear Disc [place] and healthy, (-) NVD [place] and healthy, (-) NVD C/D Ratio Vertical 0.55 0.55 C/D Ratio Horizontal 0.55 0.55 Macula Flat with even pigmentation, (-) DME Flat with even pigmentation, (-) DME Vessels Normal course and caliber, (-) NVE Normal course and caliber, (-) NVE Periphery No holes/tears/detachments 360 No holes/tears/detachments 360 Refraction Manifest Refraction (Subjective) Sphere Cylinder Dist VA Right [place] Sphere 20/20 Left [place] Sphere 20/20 Assessment and Plan Diagnoses and all orders for this visit: Type 2 diabetes mellitus without ophthalmic manifestations (HCC) - No diabetic retinopathy or diabetic macular edema both eyes (OU) - Discussed importance of tight blood glucose control, medication compliance and regular follow up with PCP. Today's exam notes will be made available for PCP to review. 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 RTC in 1 year for comprehensive eye exam or sooner as needed Shona Munoz, OD 06/04/2025, 3:50 PM Battery Plate Assembler Source: __ None __ Bilingual Staff __ Qualified Staff Corporate Affairs Manager __ Telephone Battery Plate Assembler; ID# __ Battery Plate Assembler brought by patient (family member, friend, UNIT SECY, etc) _x_ In person campus rep __ Ipad Battery Plate Assembler; ID#: Language Spoken During Exam: Ellie Polanco [1] Current Outpatient Medications Medication Sig Dispense Refill acetaminophen (Tylenol Extra Strength) 500 MG tablet Take 1 tablet (500 mg) by mouth every 6 (six) hours if needed for mild pain. 120 tablet 0 Blood Pressure kit 1 each 2 times daily. 1 kit 0 Blood Pressure Monitoring (Omron 3 Series BP Monitor) device USE TO CHECK BLOOD PRESSURE TWICE DAILY DIRECTED cyclobenzaprine (Flexeril) 10 MG tablet Take 1 tablet (10 mg) by mouth at bedtime for 10 days. 10 tablet 0 meloxicam (Mobic) 15 MG tablet Take 1 tablet (15 mg) by mouth Once per day. 30 tablet 0 metFORMIN XR (Glucophage-XR) 750 MG 24 hr tablet Take 1 tablet (750 mg) by mouth 2 times daily. Do not crush, chew, or split. 180 tablet 3 simvastatin (Zocor) 20 MG tablet Take 1 tablet (20 mg) by mouth in the evening. 30 tablet 11 No current facility-administered medications for this visit. 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 No pertinent surgical history. [4] No family history on file. 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
--- OUTSIDE RECORDS SUMMARY | 2025-06-05 09:30 | XMS_ITS | Encounter Summary ---
Author Organization [employer] Address [address] [place] [address] [address], [place] [address] Care Team Providers Care Philosophy Instructor Name Role Phone Jeanette Burrell NP Primary Care Provider [phone] Reason for Referral * Consultation (Routine) - Authorized Specialty Diagnoses / Procedures Referred By Contgus t Referred To Contact Nutrition Diagnoses Type 2 diabetes mellitus without complication, without long-term current use of insulin (HCC) Class 1 obesity due to excess calories with serious comorbidity and body mass index (BMI) of 34.0 to 34.9 in adult Jeanette Burrell NP [address] [place] [address] Phone: tel: fax: Referral ID Status Reason Start Date Expiration Date Visits Requested Visits Authorized [id number] Authorized Consult and Treat 06/05/2025 06/05/2026 1 1 Reason for Visit * Reason Comments Follow-up Encounter Details Date Type Department Care Team (Late st Contact Info) Description 06/05/2025 9:30 AM EST Office Visit [facility] [address] [place] [address] Jeanette Burrell NP [address] [place] [address] Encounter for health-related screening (Primary Dx); Type 2 diabetes mellitus without complication, without long-term current use of insulin (HCC); Encounter for immunization; Dietary counseling; Exercise counseling; Class 1 obesity due to excess calories with serious comorbidity and body mass index (BMI) of 34.0 to 34.9 in adult Social History Tobacco Use Types Packs/Day Years [...] Sign Reading Time Taken Comments Blood Pressure 126/86 06/05/2025 9:32 AM EST Pulse 100 06/05/2025 9:32 AM EST Temperature 36.8 C (98.2 F) 06/05/2025 9:32 AM EST Respiratory Rate 25 06/05/2025 9:32 AM EST Oxygen Saturation 98% 06/05/2025 9:32 AM EST Inhaled Oxygen Concentration - - Weight 89.3 kg (196 lb 12.8 oz) 06/05/2025 9:32 AM EST Height 160 cm (5' 3 ) 06/05/2025 9:32 AM EST Body Mass Index 34.86 06/05/2025 9:32 AM EST documented in this encounter Functional Status * Over the past 2 weeks, how often have you been bothered by any of the following problems? Question Answer Date of Assessment Author Patient Health Questionnaire -2 Score 0 06/05/2025 10:33 AM Mason Leonardo MA * Little interest or pleasure in doing things Answer Date of Assessment Author Not at all 06/05/2025 10:33 AM Mason Leonardo MA * Feeling down, depressed, or hopeless Answer Date of Assessment Author Not at all 06/05/2025 10:33 AM Mason Leonardo MA * Trouble falling or staying asleep, or sleeping too much Answer Date of Assessment Author Not at all 06/05/2025 10:33 AM Mason Leonardo MA * Feeling tired or having little energy Answer Date of Assessment Author Not at all 06/05/2025 10:33 AM Mason Leonardo MA * Poor appetite or overeating Answer Date of Assessment Author Not at all 06/05/2025 10:33 AM Mason Leonardo MA * Feeling bad about yourself - or that you are a failure or have let yourself or your family down Answer Date of Assessment Author Not at all 06/05/2025 10:33 AM Mason Leonardo MA * Trouble concentrating on things, such as reading the newspaper or watching television Answer Date of Assessment Author Not at all 06/05/2025 10:33 AM Mason Leonardo MA * Moving or speaking so slowly that other people could have noticed? Or the opposite - being so fidgety or restless that you have been moving around a lot more than usual. Answer Date of Assessment Author Not at all 06/05/2025 10:33 AM Mason Leonardo MA * Thoughts that you would be better off or hurting yourself in some way Answer Date of Assessment Author Not at all 06/05/2025 10:33 AM Mason Leonardo MA * Patient Health Questionnaire-9 Score Answer Date of Assessment Author 0 06/05/2025 10:33 AM Mason Leonardo MA * Over the last 2 weeks, how often have you been bothered by any of the following problems? Question Answer Date of Assessment Author Feeling nervous, anxious, or on edge 0 06/05/2025 10:33 AM Mason Leonardo MA Not being able to stop or co ntrol worrying 0 06/05/2025 10:33 AM Mason Leonardo MA Worrying too much about diff erent things 0 06/05/2025 10:33 AM Mason Leonardo MA Trouble relaxing 0 06/05/2025 10:33 AM Mason Leonardo MA Being so restless that it is hard to sit still 0 06/05/2025 10:33 AM Mason Leonardo MA Becoming easily annoyed or irritable 0 06/05/2025 10:33 AM Mason Leonardo MA Feeling afraid as if somethi ng awful might happen 0 06/05/2025 10:33 AM Mason Leonardo MA KAYKAY-7 Total Score 0 06/05/2025 10:33 AM Mason Leonardo MA documented as of this encounter Miscellaneous Notes * Assessment & Plan Note - Jeanette Burrell NP - 06/05/2025 9:30 AM ESTAssociated Problem(s): Type 2 diabetes mellitus without complication, without long-term current useof insulin (HCC) Orders: POCT Glucose POCT Hgb A1c Referral to Nutrition Therapy; Future documented in this encounter Plan of Treatment Upcoming Encounters Date Type Department Care Team (Late st Contact Info) Description 06/18/2025 9:30 AM EST Office Visit [facility] [address] [place] [address] Arron Mejia DDS [address] [place] [address] Scheduled Orders Name Type Priority Associated Diagnoses Orde r Schedule Hepatitis A,B,C Profile Lab Routine Encounter for health-related screening Expected: 06/05/2025, Expires: 06/04/2026 HIV-1/2 Antigen and Antibodies, Fourth Generation, with Reflexes Lab Routine Encounter for health-related screening Expected: 06/05/2025 (Approximate), Expires: 06/05/2026 Scheduled Referrals Name Type Priority Associated Diagnoses Orde r Schedule Referral to Nutrition Therapy Outpatient Referral Routine Type 2 diabetes mellitus without complication, without long-term current use of insulin (HCC) Class 1 obesity due to excess calories with serious comorbidity and body mass index (BMI) of 34.0 to 34.9 in adult Expected: 06/05/2025 (Approximate), Expires: 06/05/2026 documented as of this encounter Goals Goal Patient Goal Type Associated Problems Recent Progress Patient-Stated? Author Help patients manage their type 2 diabetes Care Plan Help patients manage their type 2 diabetes Mason Cheatham MA Patient has chronic kidney disease Care Plan Patient has chronic kidney disease Mason Cheatham MA documented as of this encounter Procedures Procedure Name Priority Date/Time Associated Diagnosis Comments POCT GLYCATED HEMOGLOBIN, TOTAL Routine 06/05/2025 9:35 AM EST Type 2 diabetes mellitus without complication, without long-term current use of insulin (HCC) POCT GLUCOSE Routine 06/05/2025 9:34 AM EST Type 2 diabetes mellitus without complication, without long-term current use of insulin (HCC) documented in this encounter Results * (ABNORMAL) POCT Hgb A1c (06/05/2025 9:35 AM EST) Hemoglobin A1C 6.4(A) 4.0 - 5.7 % QC Media Lot # [id number] Lot# Expiration Date 52,327 Blood 06/05/2025 9:35 AM EST us Jeanette Burrell NP POINT OF CARE TEST ENTER/EDIT O RDERABLES Final Result * POCT Glucose (06/05/2025 9:34 AM EST) Glucose Blood, POC 115 60 - 200 mg/dL QC Media Lot # [id number] Lot# Expiration Date 31,126 Blood Capillary blood specimen / Unknown 06/05/2025 9:34 AM EST us Jeanette Burrell NP POINT OF CARE TEST ENTER/EDIT O RDERABLES Final Result documented in this encounter Visit Diagnoses Diagnosis Encounter for health-related screening- Primary Type 2 diabetes mellitus without complication, without long-term current use of insulin ([facility]) Encounter for immunization Dietary counseling Dietary surveillance and counseling Exercise counseling Class 1 obesity due to excess calories with serious comorbidity and body mass index (BMI) of 34.0 to 34.9 in adult documented in this encounter Additional Health Concerns Active Problems Noted Date Diagnosed Date Help patients manage their type 2 diabetes 06/05 Patient has chronic kidney disease 06/05/2025 Assessment Noted Time PHQ-9 Depression Total Score: 0 06/05/20 25 10:33 AM EST documented as of this encounter Care Teams Philosophy Instructor Relationship Specialty Start Date End Date Jeanette Burrell NP [address] [place] [id number] PCP - General Family Medicine 07/11/24 documented as of this encounter
--- OUTSIDE RECORDS SUMMARY | 2025-06-05 12:35 | XMS_ITS | Encounter Summary ---
Author Organization [employer] Address [address] [facility] [address] [place] [address] Care Team Providers Care Wine Steward Name Role Phone Jeanette Burrell NP Primary Care Provider [phone] Encounter Details Date Type Department Care Team (Latest Contact Info) Description 06/04/2025 Travel Social History Tobacco Use Types Packs/Day [...] as of this encounter Plan of Treatment Upcoming Encounters Date Type Department Care Team (Late st Contact Info) Description 06/18/2025 9:30 AM EST Office Visit [facility] [address] [place] [address] Arron Mejia DDS [address] [place] [address] documented as of this encounter Visit Diagnoses Not on filedocumented in this encounter Care Teams Wine Steward Relationship Specialty Start Date End Date Jeanette Burrell NP [address] [place] [address] PCP - General Family Medicine 07/11/24 documented as of this encounter
--- OUTSIDE RECORDS SUMMARY | 2025-06-05 12:35 | XMS_ITS | Encounter Summary ---
Author Organization [employer] [facility] Address [address] [place] [address] [address], [place] [address] Care Team Providers Care Vice President [employer] Name Role Phone Jeanette Burrell NP Primary Care Provider [phone] Encounter Details Date Type Department Care Team (Late st Contact Info) Description 11/21/2024 Orders Only [facility] [address] [place] [address] Jeanette Burrell NP [address] [place] [address] Bacterial vaginosis (Primary Dx) Social History Tobacco Use Types [...] Description 06/18/2025 9:30 AM EST Office Visit [facility] [address] [place] [address] Arron Mejia DDS [address] [place] [address] documented as of this encounter Visit Diagnoses Diagnosis Bacterial vaginosis- Primary Unspecified vaginitis and vulvovaginitis documented in this encounter Care Teams Vice President [employer] Relationship Specialty Start Date End Date Jeanette Burrell NP [address] [place] [address] PCP - General Family Medicine 07/11/24 documented as of this encounter
--- OUTSIDE RECORDS SUMMARY | 2025-06-05 12:35 | XMS_ITS | Clinical Summary ---
Author Organization [email or web address] Address [address] [facility] [address] [place] [address] Care Team Providers Care Avionics Safety Inspector Name Role Phone Jeanette Burrell NP Primary Care Provider [phone] Allergies No known active allergies Medications Blood Pressure kitIndications:El evated blood pressure reading in office without diagnosis of hypertension 1 each 2 times daily. 1 kit 4 07/11/20 25 Active metFORMIN XR (Glucophage-XR) 750 MG 24 hr tabletIndications :Type 2 diabetes mellitus without complication, without long-term current use of insulin (HCC) Take 1 tablet (750 mg) by mouth 2 times daily. Do not crush, chew, or split. 180 tablet 3 4 07/11/20 25 Active simvastatin (Zocor) 20 MG tabletIndications :Type 2 diabetes mellitus without complication, without long-term current use of insulin (HCC) Take 1 tablet (20 mg) by mouth in the evening. 30 tablet 11 4 07/11/20 25 Active Blood Pressure Monitoring (Omron 3 Series BP Monitor) device USE TO CHECK BLOOD PRESSURE TWICE DAILY DIRECTED 4 Active acetaminophen (Tylenol Extra Strength) 500 MG tablet Take 1 tablet (500 mg) by mouth every 6 (six) hours if needed for mild pain. 120 tablet 5 06/26/20 25 Active meloxicam (Mobic) 15 MG tablet Take 1 tablet (15 mg) by mouth Once per day. 30 tablet 5 05/27/20 26 Active cyclobenzaprine (Flexeril) 10 MG tablet Take 1 tablet (10 mg) by mouth at bedtime for 10 days. 10 tablet 06/06/20 25 Active Active Problems Problem Noted Date Diagnosed Date Acute thoracic back pain 05/27/2025 Assessment & Plan (05/27/2025 5:19 PM EST): - Muscular spasm in the back, likely related to recent physical activity. No evidence of urinary tract infection or renal involvement. No associated fever, urinary symptoms, nausea, or vomiting. No prior similar episodes of this severity. - Prescribed meloxicam daily for 1 week for pain management. Advised use of Tylenol as needed for additional pain control. Prescribed cyclobenzaprine at night with Tylenol for muscle relaxation. Recommended application of warm water or wokp-tek-mivbgpa hot patches to the affected area. Advised stretching exercises. If symptoms persist beyond 3 weeks or worsen, instructed to return for further evaluation. - Risks and side effects: Cyclobenzaprine may cause drowsiness and dry mouth. Discussed these potential side effects. - Will order Xrays at her request, I will contact her if findings suggest a diagnosis other than arthritis. If symptoms persist or worsen, advised to return for further evaluation. Stage 2 grade B generalized periodontitis per AAP/EFP 2017 classification 02/22/2025 Dental calculus 02/22/2025 Gingival bleeding 02/22/2025 Type 2 diabetes mellitus wit hout complication, without long-term current use of insulin 03/19/2024 Assessment & Plan (06/05/2025 10:07 AM EST): Orders: POCT Glucose POCT Hgb A1c Referral to Nutrition Therapy; Future Assessment & Plan (02/14/2025 11:56 AM EDT): -A1c down to 7.6 % today POCT 155 mg/dL -daily med compliance discussed and patient is assisted in setting pill reminder on phone -discussed benefits of health diet and routine physical activity -monitoring fasting labs ordered to be completed prior to next visit -will consider EFREM/ARB for renal protection given Assessment & Plan (03/19/2024 10:49 AM EDT): Reports diagnosis previously, taking Metformin 750mg BID Restarted medication Labs ordered to prepare for PCP visit Other hyperlipidemia 03/19/2024 Assessment & Plan (03/19/2024 10:48 AM EDT): Reports taking Simvastatin, unsure of dosage Elevated blood pressure read ing in office without diagnosis of hypertension 03/19/2024 Assessment & Plan (05/27/2025 5:18 PM EST): - Blood pressure noted to be elevated, likely secondary to acute pain. - Advised to monitor blood pressure at home once pain subsides. If blood pressure remains above 140/85 mmHg, instructed to return for further assessment. Assessment & Plan (03/19/2024 10:50 AM EDT): Continue to monitor in clinic, would start ACEi/ARB if needed based on BP for renal protection Encounters Date Type Department Care Team Description 06/05/2025 9:30 AM EST Office Visit [address] [address] Jeanette Burrell NP Encounter for health-related screening (Primary Dx); Type 2 diabetes mellitus without complication, without long-term current use of insulin (HCC); Encounter for immunization; Dietary counseling; Exercise counseling; Class 1 obesity due to excess calories with serious comorbidity and body mass index (BMI) of 34.0 to 34.9 in adult 06/05/2025 Travel 06/04/2025 11:00 AM EST Office Visit [facility] OPTOMETRY [address] [place] [address] Shona Munoz, MARYSE Type 2 diabetes mellitus without ophthalmic manifestations (HCC) (Primary Dx); Emmetropia 06/04/2025 Travel 06/04/2025 Telephone [facility] MEDICINE [address] [place] [phone] Jeanette Burrell NP Chart Prep 05/29/2025 Patient Outreach [address] [address] Jeanette Burrell NP Care Coordination (CHW outreach for SDOH housing search-referral completed ) 05/29/2025 Patient Outreach [facility] & PEDS [address] [place] [address] Jeanette Burrell NP Pre-visit Planning (SDOH positive, Tobacco screening negative. ) 05/27/2025 1:20 PM EST Office Visit [facility] W[facility]IN [facility] [address] [place] [address] Purvi Quiñonez MD Acute thoracic back pain, unspecified back pain laterality (Primary Dx); Elevated blood pressure reading in office without diagnosis of hypertension; Back strain, initial encounter 05/27/2025 Travel 04/26/2025 3:00 PM EDT Office Visit [facility] ADULT DENTAL [address] [place] [address] Arron Mejia DDS 04/25/2025 Telephone [facility] MED[facility] [address] [place] [address] Jeanette Burrell NP CHARTPREP 04/23/[address] [address] Jeanette Burrell NP recall 04/12/[address] [address] Jeanette Burrell NP Med Refill 03/11/2025 11:30 AM EDT Office Visit [facility] ADULT DENTAL [address] [place] [address] Emily Fry DDS History of third molar tooth extraction, unspecified edentulism class (Primary Dx) 03/05/2025 1:30 PM EDT Office Visit [facility] ADULT DENTAL [address] [place] [address] Arron Mejia DDS Rotated tooth (Primary Dx) from Last 3 Months Immunizations Immunization Administration Dates Next Due Influenza, seasonal, injectable, preservative fr ee 06/05/2025 Tdap 06/05/2025 Social History Tobacco Use Types Packs/Day Years Used Date Smoking Tobacco: Never Passive Smoke Exposure: Never Smokeless Tobacco: Never Tobacco Cessation:Counseling Given: Not Answered Alcohol Answer Date Recorded How often do [...] Mass Index 34.86 06/05/2025 9:32 AM EST Plan of Treatment Upcoming Encounters Date Type Department Care Team (Late st Contact Info) Description 06/18/2025 9:30 AM EST Office Visit [facility] ADULT DENTAL [address] [place] [address] Arron Mejia, DDS [address], [place] [phone] Health Maintenance Due Date Last Done Comments HIV Screening 1985 HIB Vaccines (1 of 1 - Risk 1-dose series) 03/28/1989 Meningococcal Vaccine (1 - Risk 2-dose series) 12/26/1989 Diabetes: Foot Exam 12/26/1997 Meningococcal B Vaccine (1 of 4 - Increased Risk) 12/26/1997 Family Planning (PISQ) 12/26/2002 HPV Vaccines (1 - 3-dose series) 12/26/2002 Hepatitis C Screening 12/26/2005 Diabetes: Urine Protein Screening 12/26/2006 Hepatitis B Vaccines (1 of 3 - 19+ 3-dose series) 12/26/2006 Pneumococcal Vaccine: Pediatrics (0 to 5 Years) and At-Risk Patients (6 to 49) Years (1 of 2 - PCV) 12/26/2006 Pap Smear 12/26/2008 Cervical Cancer Screening 12/26/2017 HPV/Cotest 12/26/2017 Lipid Panel 03/19/2025 03/19/2024 COVID-19 Vaccine ( season) 2025 Dental Oral Exam 07/19/2025 01/16/2025 Dental Prophylaxis 07/19/2025 01/16/2025 Diabetes: Hemoglobin A1C 12/03/2025 025, 06/05/2025, 11/16/2024, Additional history exists Dental X-Ray: Bitewings 03/02/2026 03/01/20 25, 02/22/2025, 01/16/2025 SDOH Screening 05/29/2026 05/29/2025 Alcohol/Substance Use Screening 06/05/2026 06/05/2025 Depression Screening 06/05/2026 06/05/2025, 11/12/20 25 Disability Screening 06/05/2026 06/05/2025 Tobacco Screening 06/05/2026 06/05/2025 Eye Exam 06/04/2027 06/04/2025, 05/25, 06/04/2025, Additional history exists Dental X-Ray: Full Mouth 03/02/2028 03/01/2025, 12/24 DTaP/Tdap/Td Vaccines (2 - Td or Tdap) 06/05/2035 06/05/2025 Zoster Vaccines (1 of 2) 12/26/2037 RSV Patients and Patients Aged 60 years or older (1 - 1-dose 75+ series) 12/26/2062 Influenza Vaccine Completed 06/05/2025 Hepatitis A Vaccines Aged Out No long [...] on patient's age to complete this topic Goals Goal Patient Goal Type Associated Problems Recent Progress Patient-Stated? Author Help patients manage their type 2 diabetes Care Plan Help patients manage their type 2 diabetes Mason Cheatham MA Patient has chronic kidney disease Care Plan Patient has chronic kidney disease No Mason Ledbetter MA Procedures Procedure Name Priority Date/Time Associated Diagnosis Comments HEMOGLOBIN A1C Routine 06/05/2025 10:39 AM EST Type 2 diabetes mellitus without complication, without long-term current use of insulin (HCC) POCT GLYCATED HEMOGLOBIN, TOTAL Routine 06/05/2025 9:35 AM EST Type 2 diabetes mellitus without complication, without long-term current use of insulin (HCC) POCT GLUCOSE Routine 06/05/2025 9:34 AM EST Type 2 diabetes mellitus without complication, without long-term current use of insulin (HCC) XR THORACIC SPINE 2 VIEWS Routine 05/27/2025 2:20 PM EST Back strain, initial encounter Acute thoracic back pain, unspecified back pain laterality XR CHEST 2 VIEWS Routine 05/27/2025 2:19 PM EST Acute thoracic back pain, unspecified back pain laterality POCT URINALYSIS DIPSTICK Routine 05/27/2025 1:51 PM EST Back strain, initial encounter 19 GILLIAN RESIN-BASED COMPOSITE - 2 SURF, POSTERIOR Routine 04/26/2025 3:00 PM EDT CASE PRESENTATION, DETAILED AND EXTENSIVE TREATMENT PLANNING Routine 04/26/2025 3:00 PM EDT 18 O RESIN-BASED COMPOSITE - 1 SURF, POSTERIOR Routine 04/26/2025 3:00 PM EDT CASE PRESENTATION, DETAILED AND EXTENSIVE TREATMENT PLANNING Routine 03/11/2025 11:30 AM EDT History of third molar tooth extraction, unspecified edentulism class LIMITED ORAL EVALUATION - PROBLEM FOCUSED Routine 03/11/2025 11:30 AM EDT History of third molar tooth extraction, unspecified edentulism class CASE PRESENTATION, DETAILED AND EXTENSIVE TREATMENT PLANNING Routine 03/05/2025 1:30 PM EDT 17 EXTRACTION, ERUPTED TOOTH OR EXPOSED ROOT (ELEVATION/FORCEPS REMOVAL) Routine 03/05/2025 1:30 PM EDT Rotated tooth 16 EXTRACTION, ERUPTED TOOTH OR EXPOSED ROOT (ELEVATION/FORCEPS REMOVAL) Routine 03/05/2025 1:30 PM EDT PANORAMIC RADIOGRAPHIC IMAGE Routine 03/01/2025 2:00 PM EDT BITEWINGS - 2 RADIOGRAPHIC IMAGES Routine 03/01/2025 2:00 PM EDT Dental calculus Stage 2 grade B generalized periodontitis per AAP/EFP 2017 classification PROPHYLAXIS - ADULT Routine 01/16/2025 2 :00 PM EDT PERIODIC ORAL EVALUATION - ESTABLISHED PATIENT Routine 01/16/2025 1:30 PM EDT LIPID PANEL, STANDARD Routine 03/19/2024 9:54 AM EDT Type 2 diabetes mellitus without complication, without long-term current use of insulin ([facility]) from Last 3 Months or Most Recently Relevant to Health Maintenance Results * (ABNORMAL) Hemoglobin A1c (06/05/2025 10:39 AM EST) Hemoglobin A1c 6.7(H) <6.0 % [facility] Comment:Hemoglobin A1C Refer ence Range Adults: 4.8 - 6.0 % Non diabetic: < 6.0 % Goal: < 7.0 %Additional Action Suggested: > 8.0 %Note: Hemoglobin A1c results are invalid for patients with abnormal amounts of HbF. Blood transfusions may impact the HbA1c concentration in the patient sample. Estimated Average Glucose 146 mg/dL [facility] Comment:eAG = Estimated ave rage glucose which is %A1C expressed asaverage glucose, using the formula of the H4M-MzbmkycNwkoiwx Glucose study (ADAG), Diabetes Care, Vol.31,#8,Feb. 2007 Blood Venous blood specimen / Unknown 06/05/2025 10:39 AM EST 06/05/2025 11:49 AM EST us Jeanette Toth RECREATION ATTENDANT LAB BLOOD ORDERABLES Final Resu lt [facility] [address] [place] [phone] * (ABNORMAL) POCT Hgb A1c (06/05/2025 9:35 AM EST) Hemoglobin A1C 6.4(A) 4.0 - 5.7 % QC Media Lot # [id number] Lot# Expiration Date 52,327 Blood 06/05/2025 9:35 AM EST [facility] POINT OF CARE TEST ENTER/EDIT O RDERABLES Final Result * POCT Glucose (06/05/2025 9:34 AM EST) Glucose Blood, POC 115 60 - 200 mg/dL QC Media Lot # [id number] Lot# Expiration Date 31,126 Blood Capillary blood specimen / Unknown 06/05/2025 9:34 AM EST [facility] POINT OF CARE TEST ENTER/EDIT O RDERABLES Final Result * XR Thoracic Spine 2 Views (05/27/2025 2:20 PM EST) Anatomical Region Laterality Modality Spine, T-spine Radiographic Korina ging 05/27/2025 2:20 PM EST Narrative 05/27/2025 2:29 PM EST [facility] [address] [place] [address] XRay Report Signed Patient: Alyce Saleem MR#: [id number] 77 : 1985 Acct:[id number] Age/Sex: 39 / F ADM Date: 05/27/25 Loc: JUSTINO Attending Dr: Purvi Quiñonez MD Ordering Physician: Purvi Quiñonez MD Date of Service: 05/27/25 Procedure(s): XR thoracic spine 2V Accession Number(s): [id number] cc: Purvi Quiñonez MD Reason for Exam: mid back pain EXAMINATION: XR THORACIC SPINE CLINICAL INFORMATION: mid back pain COMPARISON: None available. TECHNIQUE: 3 views of the thoracic spine were obtained. FINDINGS: There is no fracture or bone destruction seen and the vertebral alignment is normal. There is mild disc space narrowing in the upper thoracic spine, approximately T3-4. There is no abnormality of the paraspinal soft tissues. XR/XR thoracic spine 2V IMPRESSION: Mild disc space narrowing at T3-4. Electronically signed by: Angelo Olson MD 05/27/2025 02:27 PM EST Dictated By: Angelo Olson MD Signed By: <Electronically signed by Angelo Olson MD in OV> 05/27/25 1427 DD/ 1420 TD/TT: 05/27/25 1420 Music Manager: Procedure Note Donotuseinterpreter, Image - 05/27/2025 [facility] [address] [place] [address] XRay Report Signed Patient: Alyce SaleemMR#: [id number] 77 : 1985Acct:[id number] Age/Sex: 39 / FADM Date: 05/27/25 Loc: JUSTINO Attending Dr: Purvi Quiñonez MD Ordering Physician: Purvi Quiñonez MD Date of Service: 05/27/25 Procedure(s): XR thoracic spine 2V Accession Number(s): [id number] cc: Purvi Quiñonez MD Reason for Exam: mid back pain EXAMINATION: XR THORACIC SPINE CLINICAL INFORMATION: mid back pain COMPARISON: None available. TECHNIQUE: 3 views of the thoracic spine were obtained. FINDINGS: There is no fracture or bone destruction seen and the vertebral alignment is normal. There is mild disc space narrowing in the upper thoracic spine, approximately T3-4. There is no abnormality of the paraspinal soft tissues. XR/XR thoracic spine 2V IMPRESSION: Mild disc space narrowing at T3-4. Electronically signed by: Angelo Olson MD 05/27/2025 02:27 PM EST RP Dictated By: Angelo Olson MD Signed By: <Electronically signed by Angelo Olson MD in OV> 05/27/25 1427 DD/ 1420 TD/TT: 05/27/25 1420 Music Manager: Purvi Quiñonez MD IMG XR PROCEDURES Final Result * XR Chest 2 Views (05/27/2025 2:19 PM EST) Anatomical Region Laterality Modality Chest Radiographic Korina ging 05/27/2025 2:19 PM EST Narrative 05/27/2025 2:29 [place] [address] XRay Report Signed Patient: Alyce Saleem MR#: [id number] 77 : 1985 Acct:[id number] Age/Sex: 39 / F ADM Date: 05/27/25 Loc: HO.HHCX Attending Dr: Purvi Quiñonez MD Ordering Physician: Purvi Quiñonez MD Date of Service: 05/27/25 Procedure(s): XR chest 2V Accession Number(s): [id number] cc: Purvi Quiñonez MD Reason for Exam: mid back pain EXAMINATION: XR CHEST CLINICAL INFORMATION: mid back pain COMPARISON: 10/04/2024 TECHNIQUE: 2 views of the chest were obtained. FINDINGS: The cardiac, hilar, and mediastinal contours are normal. The lungs are clear bilaterally. There is no pneumothorax or pleural effusion. There is no focal osseous or soft tissue abnormality. XR/XR chest 2V IMPRESSION: Normal chest. Electronically signed by: Daniel Patel MD 05/27/2025 02:26 PM EST RP Dictated By: Daniel Patel MD Signed By: <Electronically signed by Daniel Patel MD in OV> 05/27/25 142 DD/ 1419 TD/TT: 05/27/25 142 Music Manager: Procedure Note Donotuseinterpreter, Image - 05/27/2025 [place] [address] XRay Report Signed Patient: Alyce SaleemMR#: [id number] 77 : 1985Acct:[id number] Age/Sex: 39 / FADM Date: 05/27/25 Loc: HO.HHCX Attending Dr: Purvi Quiñonez MD Ordering Physician: Purvi Quiñonez MD Date of Service: 05/27/25 Procedure(s): XR chest 2V Accession Number(s): [id number] cc: Purvi Quiñonez MD Reason for Exam: mid back pain EXAMINATION: XR CHEST CLINICAL INFORMATION: mid back pain COMPARISON: 10/04/2024 TECHNIQUE: 2 views of the chest were obtained. FINDINGS: The cardiac, hilar, and mediastinal contours are normal. The lungs are clear bilaterally. There is no pneumothorax or pleural effusion. There is no focal osseous or soft tissue abnormality. XR/XR chest 2V IMPRESSION: Normal chest. Electronically signed by: Daniel Patel MD 05/27/2025 02:26 PM EST RP Dictated By: Daniel Patel MD Signed By: <Electronically signed by Daniel Patel MD in OV> 05/27/25 1426 DD/ 1419 TD/TT: 05/27/25 142 Music Manager: Purvi Quiñonez MD IMG XR PROCEDURES Edited Result - Final * POCT Urinalysis (05/27/2025 1:51 PM EST) Color, UA Yellow Clarity, UA Cloudy Glucose, UA 2+ 125++ Comment:100 mg/dl Bilirubin, UA Negative Ketones, UA Negative Spec Grav, UA 1.020 Blood, UA Negative Negative, None Detected pH, UA 6.5 Protein, UA Trace Urobilinogen, UA 0.2 Leukocytes, UA Negative Negative, Rare, Trace Nitrite, UA Negative Negative, None Detected QC Media Lot # [id number] Lot# Expiration Date Urine (Urine, Random) 05/27/2025 1:51 PM EST Purvi Quiñonez MD POINT OF CARE TEST ENTER /EDIT ORDERABLES Final Result * (ABNORMAL) Lipid Panel, Standard (03/19/2024 9:54 AM EDT) Triglycerides 118 <150 mg/dL [facility] Comment:Desirable Triglyceri de: less than 150 mg/dLBorderline High Triglyceride 150-199 mg/dLHigh Triglyceride: 200-499 mg/dLVery High Triglyceride: greater than or equal to 5OO mg/dL Cholesterol 189 <200 mg/dL [facility] Comment:Desirable Cholestero l: less than 200 mg/dLBorderline High Cholesterol: 200-239 mg/dLHigh Cholesterol: greater than 239 mg/dL LDL Cholesterol Calculated 113(H) <100 mg/dL [facility] Comment:Desirable LDL: less than 100 mg/dLNear Optimal/Above Optimal LDL: 110- 129 mg/dLBorderline High LDL: 130-159 mg/dLHigh LDL: 160-189 mg/dLVery High LDL: greater than or equal to 190 mg/dL HDL Cholesterol 53 >40 mg/dL [facility] Comment:Desirable HDL: great er than 40 mg/dL Note: This HDL assay may give artificially low results in patients with liver disease. Blood Venous blood specimen / Unknown 03/19/2024 9:54 AM EDT 03/19/2024 11:49 AM EDT us Reina Silverman MD LAB BLOOD ORDERABLES Final Res ult [facility] [address] [place] [phone] [phone] from Last 3 Months or Most Recently Relevant to Health Maintenance Additional Health Concerns Active Problems Noted Date Diagnosed Date Help patients manage their type 2 diabetes 06/05 Patient has chronic kidney disease 06/05/2025 Insurance [facility] C3 DENTAL-[facility] MEDICAID STAND ADULT Care Teams Avionics Safety Inspector Relationship Specialty Start Date End Date Jeanette Burrell NP [address] [place] [address] PCP - General Family Medicine 07/11/24
--- OUTSIDE RECORDS SUMMARY | 2025-06-05 12:35 | XMS_ITS | Encounter Summary ---
Author Organization [employer] [facility] Address [address] [place] [address] [address] [place] [address] Care Team Providers Care Beer Cooler Name Role Phone Jeanette Burrell NP Primary Care Provider [phone] Encounter Details Date Type Department Care Team (Late st Contact Info) Description 11/19/2024 Orders Only [facility] MED[facility] [address] [place] [address] Jeanette Burrell NP [address] [place] [address] Vaginal itching (Primary Dx) Social History Tobacco [...] Description 06/18/2025 9:30 AM EST Office Visit [facility] ADULT DENTAL [address] [place] [address] Arron Mejia DDS [address] [place] [address] Scheduled Orders Name Type Priority Associated Diagnoses [...] DETECTION BY PCR NOT DETECTED Not Detect [facility] BACTERIAL VAGINOSIS DETECTION BY PCR POSITIVE(A) Negative [facility] Comment:The BV organism targ ets of [...] DETECTION BY PCR NOT DETECTED Not Detect [facility] Larissa glab krusei PCR NOT DETECTED Not Detect [facility] 11/20/2024 11/20/2024 Jeanette Burrell NP LAB MICROBIOLOGY - [facility] Final Result [facility] [address] [place] [phone] documented in this encounter Visit Diagnoses Diagnosis Vaginal itching- Primary Pruritus of genital organs documented in this encounter Care Teams Beer Cooler Relationship Specialty Start Date End Date Jeanette Burrell NP [address] [place] [phone] PCP - General Family Medicine 07/11/24 documented as of this encounter
--- OUTSIDE RECORDS SUMMARY | 2025-06-05 12:35 | XMS_ITS | Encounter Summary ---
Author Organization [employer] Address [address] [facility] [address] [place] [address] Care Team Providers Care Crabbing Machine Operator Name Role Phone Jeanette Burrell NP Primary Care Provider [phone] Reason for Visit * Reason Onset Date Comments Chart Prep 06/04/2025 Encounter Details Date Type Department Care Team ([facility] st Contact Info) Description 06/04/2025 Telephone [facility] MEDICINE [address] [place], [place] [phone] Jeanette Burrell NP [address] [place] [address] Chart Prep Social History Tobacco Use Types Packs/Day Years [...] encounter Miscellaneous Notes * Telephone Encounter - [place] - 06/04/2025 9:55 AM EST Chart Prep Labs: not done Images: done Referrals: Optometry 06/04/2025 at 11 am. Vaccines due: Covid, Flu, PCV20, Hep B, HPV, and DTAP Screenings: pap smear, eye exam, and foot examAlcohol/Substance Use Screening Overdue care gaps: A1c, Glucose, SBIRT, PHQ-9, KAYKAY-7, Disability screen, and Tobacco documented in this encounter Plan of Treatment Upcoming Encounters Date Type Department Care Team (Late st Contact Info) Description 06/18/2025 9:30 AM EST Office Visit [facility] ADULT DENTAL [address] [place] [address] Arron Mejia DDS [address] [place] [address] documented as of this encounter Visit Diagnoses Not on filedocumented in this encounter Care Teams Crabbing Machine Operator Relationship Specialty Start Date End Date Jeanette Burrell NP [address] [place] [address] PCP - General Family Medicine 07/11/24 documented as of this encounter
--- OUTSIDE RECORDS SUMMARY | 2025-06-05 12:35 | XMS_ITS | Encounter Summary ---
Author Organization [employer] Address [address] [place] [address] Care Team Providers Care Slip Laster Name Role Phone Jeanette Burrell NP Primary Care Provider [phone] Encounter Details Date Type Department Care Team (Latest Contact Info) Description 06/05/2025 Travel Social History Tobacco Use Types Packs/Day [...] AM EDT documented as of this encounter Functional Status * Over the [...] Leonardo [place] documented as of this encounter Plan of Treatment Upcoming Encounters Date Type Department Care Team (Late st Contact Info) Description 06/18/2025 9:30 AM EST Office Visit [facility] [address] [place] [address] Arron Mejia DDS [address] [place] [address] documented as of this encounter Goals Goal Patient Goal Type Associated Problems Recent Progress Patient-Stated? Author Help patients manage their type 2 diabetes Care Plan Help patients manage their type 2 diabetes Mason Cheatham MA Patient has chronic kidney disease Care Plan Patient has chronic kidney disease Mason Cheatham [place] documented as of this encounter Visit Diagnoses Not on filedocumented in this encounter Additional Health Concerns Active Problems Noted Date Diagnosed Date Help patients manage their type 2 diabetes 06/05 Patient has chronic kidney disease 06/05/2025 Assessment Noted Time PHQ-9 Depression Total Score: 0 06/05/20 25 10:33 AM EST documented as of this encounter Care Teams Slip Laster Relationship Specialty Start Date End Date Jeanette Burrell NP [address] [place] [address] PCP - General Family Medicine 07/11/24 documented as of this encounter
--- OUTSIDE RECORDS SUMMARY | 2025-06-05 12:35 | XMS_ITS | Encounter Summary ---
Author Organization [facility] Address [address] [place] [address] [address] [place] [address] Care Team Providers Care Stevedore Hold Name Role Phone Jeanette Burrell NP Primary Care Provider [phone] Encounter Details Date Type Department Care Team (Late st Contact Info) Description 11/21/2024 Orders Only [facility] [address] [place] [address] Jeanette Burrell NP [address] [place] [address] Bacterial vaginosis Social History Tobacco Use Types Packs/Day Years [...] 9:30 AM EST Office Visit [facility] [address] [place] [address] Arron Mejia DDS [address] [place] [address] documented as of this encounter Visit Diagnoses Diagnosis Bacterial vaginosis Unspecified vaginitis and vulvovaginitis documented in this encounter Care Teams Stevedore Hold Relationship Specialty Start Date End Date Jeanette Burrell NP [address] [place] [address] PCP - General Family Medicine 07/11/24 documented as of this encounter
[2025-06-05 12:40] LABS: Alanine Aminotransferase 18 U/L (0-31); Albumin Level 4.6 g/dL (3.5-5.0); Alkaline Phosphatase 75 U/L (39-117); Anion Gap 11 (12-20); Aspartate Amino Transferase 32 U/L (5-31); Blood Urea Nitrogen 8 mg/dL (9-16); Calcium 9.5 mg/dL (8.4-10.2); Carbon Dioxide 28 mmol/L (22-29); Chloride 105 mmol/L (96-108); Cholesterol 149 mg/dL (<200); Estimated Glomerular Filt Rate > 60; HDL Cholesterol 51 mg/dL (>40); Potassium 3.6 mmol/L (3.3-5.1); Sodium 140 mmol/L (135-145); Total Protein 7.9 g/dL (6.5-8.0); Triglycerides 100 mg/dL (<150)
[2025-06-05 12:58] LABS: HBS Num1 3.77 mIU/mL (0-7.99); HBc Num1 0.07 S/CO (0.00-0.79); HBsAGNum1 0.59 S/CO (0.00-0.99); HIV Num 1 0.08 S/CO (0.00-0.99); Hepatitis A Antibody IgM 0.23 Index (0-0.79); Hepatitis B Surface Antigen Negative (Negative); ~HepC Num1 0.09 S/CO (0.00-0.79); ~Hepatitis A Antibody IgM Nonreactive (Nonreactive); ~Hepatitis B Surface Antibody NONREACTIVE (Nonreactive); ~Hepatitis C Antibody Nonreactive (Nonreactive)
[2025-06-05 13:05] LABS: Microalbum/Creatinine Ratio Ur 134.9 ug/mg cr (<30)
== END 2025-06-05 10:29 | disposition home or self-care (01) ==
LOC: HO.HHCL 10:28
PROVIDERS: PCP Nurse Practitioner; Visit Provider Nurse Practitioner
DX: Z11.59 Encounter for screening for other viral diseases (principal); Z11.4 Encounter for screening for human immunodeficiency virus [HIV]; E11.9 Type 2 diabetes mellitus without complications; Z20.6 Contact with and (suspected) exposure to human immunodeficiency virus [HIV]
CPT/HCPCS: 36415; 80053; 80061; 82043; 82570; 83036; 86704; 86706; 86709; 86803; 87340; 87389